=== PATIENT | female | born 1975 | race Caucasian/White ===

== ENCOUNTER 2017-05-01 23:20 | Emergency (ER) | payer OTHER ==
[2017-05-02 00:30] VITALS: BP 116/74; PULSE 73; TEMP 98.5; BMI 27.4
--- NOTE | 2017-05-02 00:32 | PDOC ---
History of Present Illness - General Chief Complaint: Pain, Acute Stated Complaint: CHEST PAIN AFTER LIFTING HER SON Time Seen by Provider: 05/01/17 23:23 - History of Present Illness Initial Comments: This 41-year-old woman presents with a history of right-sided chest pain for the last 24 day; patient states that she was attending a dance class with her 2year-old son when she noted the pain. Pain is worse with movement; she also has some pain with deep breathing in the area. She denies shortness of breath, cough, diaphoresis or nausea. No previous history of this type of pain. The patient states that her son is quite heavy and she picks him up routinely. No other overuse or trauma recalled. She has no recent history of fever/chills or other acute illness. Cardiac risk factors: Family history (mother at age 59 of [place]; also CVA in grandparent under the age of 65); borderline hyperlipidemia; no other risk factors with negative hypertension/diabetes mellitus/obesity/smoking Past History - Past Medical History Allergies/Adverse Reactions: Allergies Allergy/AdvReac Type Severity Reaction Status Date / Time No Known Allergies Allergy Verified 05/01/17 23:21 Home Medications: Ambulatory Orders Sertraline HCl [Zoloft] 100 mg PO DAILY 05/01/17 - Psycho/Social/Smoking Cessation Hx Anxiety: No Suicidal Ideation: No Smoking History: Never smoked Have you smoked in the past 12 months: No Hx Alcohol Use: No Substance Use Type: None *Physical Exam - Physical Exam Comments: Adult female, alert and oriented 3, in no acute distress GENERAL: The patient is awake, alert, and fully oriented, in no acute distress. Vital signs as noted. HEAD: Normal with no signs of trauma. EYES: Pupils equal, round and reactive to light, extraocular movements intact, sclera anicteric, conjunctiva clear with no pallor. ENT: moist mucous membranes. Ears normal, nares patent, oropharynx clear without exudates. NECK: Normal range of motion, supple without lymphadenopathy, JVD, or masses. LUNGS: Breath sounds equal, clear to auscultation bilaterally. No wheeze/ crackles. CHEST WALL: Moderate tenderness on palpation of pectoralis muscle on the right side; pain reproduced with adduction of right arm HEART: Regular rate and rhythm, normal S1 and S2 without murmur or rub. ABDOMEN: Soft/nontender/nondistended. BS wnl. No guarding or rebound. No palpable masses. No hepatosplenomegaly. EXTREMITIES: Normal range of motion, no edema. No clubbing or cyanosis. No cords, erythema, or tenderness. NEUROLOGICAL: Cranial nerves II through XII grossly intact. Normal speech, normal gait. PSYCH: Normal mood, normal affect. SKIN: Warm, Dry, normal turgor, no rashes or lesions noted. Twelve-lead electrocardiogram: Normal sinus rhythm at 70 bpm. Intervals, axis and intervals are all normal. No evidence of acute ST or T-wave abnormalities *DC/Admit/Observation/Transfer Diagnosis at time of Disposition: Chest wall muscle strain Qualifiers: Encounter type: initial encounter Qualified Code(s): S29.011A - Strain of muscle and tendon of front wall of thorax, initial encounter - Discharge Dispostion Disposition: HOME Condition at time of disposition: Stable - Patient Instructions Printed Discharge Instructions: DI for Atypical Chest Pain Additional Instructions: Avoid strenuous exercise involving upper body Drink plenty of fluids Ibuprofen/naproxen/acetaminophen as needed for pain Return to ER if you have persistent pain or experience shortness of breath/ nausea Follow-up with your general doctor as scheduled
--- NOTE | 2017-05-03 14:41 | EKG ---
Test Reason : Blood Pressure : / mmHG Vent. Rate : 070 BPM Atrial Rate : 070 BPM P-R Int : 150 ms QRS Dur : 084 ms QT Int : 416 ms P-R-T Axes : 023 060 034 degrees QTc Int : 449 ms NORMAL SINUS RHYTHM NORMAL ECG NO PREVIOUS ECGS AVAILABLE Confirmed by AKANKSHA POLANCO MD ([id number] on 05/03/2017 2:41:07 PM Referred By: MD CUMMINS Confirmed By:AKANKSHA POLANCO MD
== END 2017-05-02 00:45 | disposition home or self-care (01) ==
LOC: FER 23:20
DX: S29.011A Strain of muscle and tendon of front wall of thorax, initial encounter (principal); X58.XXXA Exposure to other specified factors, initial encounter; Y93.9 Activity, unspecified; Y92.9 Unspecified place or not applicable
CPT/HCPCS: 93005; 93010; 99281-25

== ENCOUNTER 2017-10-21 16:45 | Emergency (ER) | payer OTHER ==
--- NOTE | 2017-10-21 16:55 | PDOC ---
History of Present Illness - General History Source: Patient Exam Limitations: No Limitations - History of Present Illness Initial Comments: 10/21/17 18:39 Patient is a 42 year old female with a significant past medical history of who presents to the ED with complaints of headache that began 6 days ago. Patient reports experiencing intermittent headaches for 2 years since of her child. She reports headache began 6 days ago suddenly while at home. Patient states headache was bearable all week but intensified this morning. She reports experiencing floaters in her vision but states she normally sees them when she gets headaches. Patient reports scheduling for headache specialist for November 09 but thought it better to get check out due to pain. Patient states she usualy gets headaches during end and after menstrual cycle and states last menstrual cycle was 1 week ago, Denies nausea, vomiting. Denies fevers, chills. Denies blurred vision, change in vision. Denies sensitivity to light, sensitive hearing. Denies any other symptoms. Allergies: None Social history: Lives with family. No smoking. No alcohol. No illicit drugs. Fam hx: Stroke, aneurysm. Renal artery stenosis. Surgical history: Sinus surgery 2 years ago. PMD: Dr. Peters. <Rajiv Lomeli - Last Filed: 10/21/17 18:39> <Victoria Martinez - Last Filed: 10/21/17 18:44> - General Chief Complaint: Headache Stated Complaint: HEADACHE FOR 1 WEEK Time Seen by Provider: 10/21/17 16:54 Past History <Rajiv Lomeli - Last Filed: 10/21/17 18:39> - Suicide/Smoking/Psychosocial Hx Smoking History: Never smoked Have you smoked in the past 12 months: No Hx Alcohol Use: No Drug/Substance Use Hx: No Substance Use Type: None <Victoria Martinez - Last Filed: 10/21/17 18:44> - Past Medical History Allergies/Adverse Reactions: Allergies Allergy/AdvReac Type Severity Reaction Status Date / Time No Known Allergies Allergy Verified 10/21/17 16:53 Home Medications: Ambulatory Orders Sertraline HCl [Zoloft] 100 mg PO DAILY 05/01/17 Atorvastatin Ca [Lipitor] 10 mg PO DAILY 10/21/17 Cefdinir [Omnicef -] 300 mg PO BID 10/21/17 Ibuprofen [Advil -] 200 mg PO ONCE PRN 10/21/17 Review of Systems - Review of Systems Able to Perform ROS?: Yes Comments:: 10/21/17 18:39 GENERAL/CONSTITUTIONAL: No fever or chills. No weakness. HEAD, EYES, EARS, NOSE AND THROAT: No change in vision. No ear pain or discharge. No sore throat. GASTROINTESTINAL: No nausea, vomiting, diarrhea or constipation. GENITOURINARY: No dysuria, frequency, or change in urination. CARDIOVASCULAR: No chest pain or shortness of breath. RESPIRATORY: No cough, wheezing, or hemoptysis. MUSCULOSKELETAL: No joint or muscle swelling or pain. No neck or back pain. SKIN: No rash NEUROLOGIC: +headache. No vertigo, loss of consciousness, or change in strength/sensation. ENDOCRINE: No increased thirst. No abnormal weight change. HEMATOLOGIC/LYMPHATIC: No anemia, easy bleeding, or history of blood clots. ALLERGIC/IMMUNOLOGIC: No hives or skin allergy. All Other Systems: Reviewed and Negative <Rajiv Lomeli - Last Filed: 10/21/17 18:39> *Physical Exam - Vital Signs Last Vital Signs Temp Pulse Resp BP Pulse Ox 98.7 F 81 15 143/89 99 10/21/17 16:52 10/21/17 16:52 10/21/17 16:52 10/21/17 16:52 10/21/17 16:52 - Physical Exam Comments: 10/21/17 18:40 GENERAL: Awake, alert, and fully oriented, in no acute distress HEAD: No signs of trauma EYES: PERRLA, EOMI, sclera anicteric, conjunctiva clear ENT: Auricles normal inspection, hearing grossly normal, nares patent, oropharynx clear without exudates. Moist mucosa NECK: Normal ROM, supple, no lymphadenopathy, JVD, or masses LUNGS: Breath sounds equal, clear to auscultation bilaterally. No wheezes, and no crackles HEART: Regular rate and rhythm, normal S1 and S2, no murmurs, rubs or gallops ABDOMEN: Soft, nontender, normoactive bowel sounds. No guarding, no rebound. No masses EXTREMITIES: Normal range of motion, no edema. No clubbing or cyanosis. No cords, erythema, or tenderness NEUROLOGICAL: Cranial nerves II through XII grossly intact. Normal speech, normal gait SKIN: Warm, Dry, normal turgor, no rashes or lesions noted. <Rajiv Lomeli - Last Filed: 10/21/17 18:39> ED Treatment Course - LABORATORY CBC & Chemistry Diagram: 10/21/17 17:20 10/21/17 17:20 - ADDITIONAL ORDERS Additional order review: Laboratory Results 10/21/17 10/21/17 17:20 17:15 Sodium 135 L Potassium 4.0 Chloride 101 Carbon Dioxide 30 H Anion Gap 4 L BUN 14 Creatinine 0.7 Creat Clearance w eGFR > 60 Random Glucose 92 Calcium 9.3 Magnesium 2.1 Total Bilirubin 0.1 L AST 16 ALT 16 Alkaline Phosphatase 64 Total Protein 6.9 Albumin 3.9 Urine Color Yellow Urine Appearance Clear Urine pH 7.5 Ur Specific [place] 1.020 Urine Protein Negative Urine Glucose (UA) Negative Urine Ketones Negative Urine Blood 1+ H Urine Nitrite Negative Urine Bilirubin Negative Urine Urobilinogen 0.2 Ur Leukocyte Esterase 1+ H Urine RBC 5-10 Urine WBC 5-10 Ur Epithelial Cells 3-5 Urine HCG, Qual Negative 10/21/17 17:20 RBC 4.54 MCV 86.1 MCHC 33.8 RDW 12.7 MPV 7.6 Neutrophils % 61.4 Lymphocytes % 27.7 Monocytes % 5.0 Eosinophils % 5.0 H Basophils % 0.9 - Medications Given in the ED: ED Medications Discontinued Medications Generic Name Dose Route Start Last Admin Trade Name Florentino PRN Reason Stop Dose Admin Acetaminophen 1,000 mg 10/21/17 17:12 10/21/17 17:52 Ofirmev Injection - IVPB 10/21/17 17:13 1,000 mg ONCE ONE Administration Diphenhydramine HCl 12.5 mg 10/21/17 17:12 10/21/17 17:30 Benadryl Injection - IVPUSH 10/21/17 17:13 12.5 mg ONCE ONE Administration Metoclopramide HCl 10 mg 10/21/17 17:12 10/21/17 17:52 Reglan Injection - IVPUSH 10/21/17 17:13 10 mg ONCE ONE Administration Sodium Chloride 1,000 ml 10/21/17 17:12 10/21/17 17:30 Normal Saline - IV 10/21/17 17:13 1,000 ml ONCE ONE Administration <Rajiv Lomeli - Last Filed: 10/21/17 18:39> - LABORATORY CBC & Chemistry Diagram: 10/21/17 17:20 10/21/17 17:20 <Victoria Martinez - Last Filed: 10/21/17 18:44> Medical Decision Making - Medical Decision Making 10/21/17 17:25 a/p: 42yo female with ricketts x 1 week. -has noticed assoication with menstrual cycle and has been getting ricketts each moth , but this ricketts is lasting longer -has had floaters for last year -no focal neuro deficit -fam hx of vascular anomolies -will obtain labs, ct head, medicate for ricketts -pt has appt with ricketts specialist for nov 09 -no meningeal signs -no thunderclap ricketts or symptoms of SAH 10/21/17 18:32 ricketts resolved. pt feeling much better. pending head ct read labs reviewed. no dysuria or urinary freq. 10/21/17 18:43 no acute findings on head ct. Pt neuro intact. RICKETTS resolved. Pt stable for d/c to home. Has neuro appt. Will make appt to see PMD and ophthomology. ANswered all questions. Pt is stable for d/c to home. <Victoria Martinez - Last Filed: 10/21/17 18:44> *DC/Admit/Observation/Transfer - Attestations Scribe Attestion: 10/21/17 18:40 Documentation prepared by Rajiv Lomeli, acting as medical record technician for Victoria Martinez DO, MD/. <Rajiv Lomeli - Last Filed: 10/21/17 18:39> - Discharge Dispostion Admit: No - Attestations Physician Attestion: 10/21/17 17:27 I, Dr. Victoria Martinez DO, attest that this document has been prepared under my direction and personally reviewed by me in its entirety. I further attest, that it accurately reflects all work, treatment, procedures and medical decision -making performed by me. <Victoria Martinez - Last Filed: 10/21/17 18:44> Diagnosis at time of Disposition: Headache - Discharge Dispostion Disposition: HOME Condition at time of disposition: Stable - Referrals Referrals: Nga Peters MD [Primary Care Provider] - - Patient Instructions Printed Discharge Instructions: DI for Headache Additional Instructions: Please make an appointment to see your PMD and the ophthomologist. Please keep your appointment with the neurologist. Please keep a diary when you develop your headaches. Please return to the ED with any further concerns. - Post Discharge Activity
[2017-10-21] MEDS ORDERED: SODIUM CHLORIDE 0.9% 1000 ML INFUS.BAG IV ONE (17:12)
[2017-10-21] MEDS ORDERED: ACETAMINOPHEN 1000 MG/100 ML VIAL (NON FORMULARY) IVPB ONE (17:12)
[2017-10-21] MEDS ORDERED: METOCLOPRAMIDE HCL INJECTION 10 MG/2 ML VIAL IVPUSH ONE (17:12)
[2017-10-21 17:13] VITALS: BP 143/89; PULSE 81; TEMP 98.7; BMI 28.9
[2017-10-21] MEDS ORDERED: ACETAMINOPHEN INJECTION 100 ML IVPB ONE (17:18)
[2017-10-21 17:30] LABS: PH,URINE 7.5 (4.5-8); URINE APPEARANCE Clear; URINE BILIRUBIN Negative (NEGATIVE); URINE GLUCOSE (UA) Negative (NEGATIVE); URINE KETONE Negative (NEGATIVE); URINE NITRITE Negative (NEGATIVE); URINE PROTEIN Negative (NEGATIVE); URINE UROBILINOGEN 0.2 (0.2-1.0)
[2017-10-21 17:31] LABS: URINE BLOOD 1+ (NEGATIVE); URINE COLOR YELLOW; URINE LEUK ESTERASE 1+ (NEGATIVE)
[2017-10-21 17:53] LABS: BASOPHIL 0.9 % (0-2.0); MCH 29.1 pg (25.7-33.7); MCHC 33.8 g/dl (32.0-36.0); MEAN CELL VOLUME 86.1 fl (80-96); MEAN PLT VOLUME 7.6 fl (7.5-11.1); NEUTROPHILS 61.4 % (42.8-82.8); PLATELET COUNT 285 K/MM3 (134-434); RDW 12.7 % (11.6-15.6); WHITE BLOOD COUNT 6.9 K/mm3 (4.0-10.8)
[2017-10-21 18:11] LABS: ALBUMIN 3.9 g/dl (3.5-5.0); ALK PHOS 64 U/L (32-92); ANION GAP 4 (8-16); CALCIUM 9.3 mg/dl (8.4-10.2); CO2 30 mmol/L (22-28); CREATININE 0.7 mg/dl (0.6-1.3); GLUCOSE,RANDOM 92 mg/dl (74-106); MAGNESIUM 2.1 mg/dL (1.8-2.4); SGOT/AST 16 U/L (10-42); SGPT/ALT 16 U/L (10-40); TOT PROT 6.9 g/dl (6.4-8.3)
[2017-10-21 18:19] LABS: BILIRUBIN,TOTAL 0.1 mg/dl (0.2-1.0)
== END 2017-10-21 18:58 | disposition home or self-care (01) ==
LOC: FER 16:45
PROC: 3E0337Z Introduction of Electrolytic and Water Balance Substance into Peripheral Vein, Percutaneous Approach (ICD-10-PCS; principal; 2017-10-21)
DX: R51 Headache (principal)
CPT/HCPCS: 36415; 70450-TC; 80053; 81003; 81015; 83735; 84703; 85025; 99282-25

== ENCOUNTER 2021-01-13 16:27 | Emergency (ER) | payer OTHER ==
[2021-01-13 17:08] VITALS: BP 103/67; PULSE 77; TEMP 97.6; BMI 29.2
== END 2021-01-13 17:08 | disposition home or self-care (01) ==
LOC: FER 16:27
DX: S00.83XA Contusion of other part of head, initial encounter (principal)
CPT/HCPCS: 99282-25

== ENCOUNTER 2021-05-26 16:24 | Emergency (ER) | payer BC, OTHER ==
[2021-05-26 16:53] VITALS: BP 96/68; PULSE 70; TEMP 98.4; BMI 28.9
[2021-05-26] MEDS ORDERED: IBUPROFEN 600 MG TABLET (FP) PO ONE (17:25)
== END 2021-05-26 19:36 | disposition home or self-care (01) ==
LOC: FER 16:24
PROC: 2W3MX1Z Immobilization of Left Lower Extremity using Splint (ICD-10-PCS; principal; 2021-05-26)
DX: R55 Syncope and collapse (principal); S82.892A Other fracture of left lower leg, initial encounter for closed fracture
CPT/HCPCS: 73610-TC-LT-FY; 73630-TC-LT; 93005; 99284-25

== ENCOUNTER 2022-05-01 03:52 | Emergency (ER) | payer BC ==
[2022-05-01 04:07] VITALS: BMI 28.9
[2022-05-01 09:00] VITALS: BP 103/66; PULSE 71; TEMP 98.3
== END 2022-05-01 09:15 | disposition home or self-care (01) ==
LOC: FER 03:52
DX: R07.89 Other chest pain (principal)
CPT/HCPCS: 36415; 82550; 84484; 93005; 99284-25

== ENCOUNTER 2022-08-01 16:55 | Emergency (ER) | payer BC, OTHER ==
[2022-08-01 17:02] VITALS: BP 110/79; PULSE 82; RESP 16; TEMP 98.7; BMI 29.8
[2022-08-01 18:18] LABS: HEMATOCRIT 35.5 % (32.4-45.2); HEMOGLOBIN 12.7 G/dL (10.7-15.3); MCH 30.8 pg (25.7-33.7); MCHC 35.9 g/dl (32.0-36.0); MEAN CELL VOLUME 85.9 fl (80-96); MEAN PLT VOLUME 7.1 fl (7.5-11.1); RBC 4.13 10^6/uL (3.60-5.2); RDW 14.3 % (11.6-15.6); WHITE BLOOD COUNT 7.3 10^3/uL (4.0-10.8)
[2022-08-01 18:40] LABS: ALBUMIN 3.6 g/dl (3.4-5.0); ALK PHOS 71 U/L (45-117); ANION GAP 11 MMOL/L (8-16); BILIRUBIN,TOTAL 0.4 mg/dl (0.2-1); CALCIUM 9.5 mg/dl (8.5-10); CHLORIDE 100 mmol/L (98-107); CO2 26 mmol/L (21-32); CREATININE 0.8 mg/dl (0.55-1.3); GLUCOSE,RANDOM 124 mg/dl (74-106); SGOT/AST 17 U/L (15-37); SGPT/ALT 16 U/L (13-61); SODIUM 137 mmol/L (136-145); TOT PROT 6.4 g/dl (6.4-8.2)
[2022-08-01 21:05] LABS: PLATELET ESTIMATE ADEQUATE
== END 2022-08-01 19:02 | disposition home or self-care (01) ==
LOC: FER 16:55
DX: M79.601 Pain in right arm (principal)
CPT/HCPCS: 36415; 71045-TC-FY; 80053; 84484; 85027; 93005; 99285-25

== ENCOUNTER 2024-07-01 10:42 | Emergency (ER) | payer OTHER ==
[2024-07-01 10:53] VITALS: BP 128/80; PULSE 86; RESP 18; TEMP 98.2; BMI 30.3
[2024-07-01] MEDS ORDERED: METOCLOPRAMIDE HCL INJECTION 10 MG/2 ML VIAL ONE (10:57)
[2024-07-01] MEDS ORDERED: KETOROLAC TROMETHAMINE 15 MG/ML VIAL ONE (10:57)
[2024-07-01] MEDS: KETOROLAC TROMETHAMINE 15 MG/ML VIAL IVPUSH ONE (11:00)
[2024-07-01] MEDS: SODIUM CHLORIDE 0.9% 500 ML INFUS.BAG IV ONE (11:00)
[2024-07-01] MEDS: METOCLOPRAMIDE HCL INJECTION 10 MG/2 ML VIAL IVPUSH ONE (11:15)
[2024-07-01] MEDS ORDERED: ONDANSETRON 4 MG/2 ML VIAL ONE (13:07)
== END 2024-07-01 13:30 | disposition home or self-care (01) ==
LOC: FER 10:42
PROC: 3E033GC Introduction of Other Therapeutic Substance into Peripheral Vein, Percutaneous Approach (ICD-10-PCS; principal; 2024-07-01)
PROC: 3E033GC Introduction of Other Therapeutic Substance into Peripheral Vein, Percutaneous Approach (ICD-10-PCS; 2024-07-01)
PROC: 3E0333Z Introduction of Anti-inflammatory into Peripheral Vein, Percutaneous Approach (ICD-10-PCS; 2024-07-01)
DX: G43.909 Migraine, unspecified, not intractable, without status migrainosus (principal)
CPT/HCPCS: 99284-25